=== PATIENT | female | born 1950 ===

== ENCOUNTER → 2023-09-04 | Day surgery (SDC) | payer OTHER | END | disposition home or self-care (01) | LOC: ADM 08-29 13:00 → AMB-ENDOS 06:40 | PROVIDERS: ATTEND Colon & Rectal Surgery | DX: C20 Malignant neoplasm of rectum (principal); K62.1 Rectal polyp; Z20.822 Contact with and (suspected) exposure to COVID-19 ==

== ENCOUNTER 2024-09-23 08:25 | Day surgery (SDC) | payer OTHER ==
[2024-09-23] MEDS ORDERED: MIDAZOLAM HCL 2 MG/2 ML VIAL IV ONE (12:45)
[2024-09-23] MEDS ORDERED: ONDANSETRON HCL 2 MG/ML VIAL IV ONE (12:45)
[2024-09-23] MEDS ORDERED: FLUMAZENIL 0.5 MG/5 ML ML IV ONE (12:45)
[2024-09-23] MEDS ORDERED: DIPHENHYDRAMINE HCL 50 MG/ML VIAL 1ML IV ONE (12:45)
[2024-09-23] MEDS ORDERED: fentaNYL CITRATE 50 MCG/ML AMPUL IV PUSH ONE (12:45)
== END 2024-09-23 14:00 | disposition home or self-care (01) ==
LOC: AMB-ENDOS 08:25
PROVIDERS: ATTEND Colon & Rectal Surgery
DX: C20 Malignant neoplasm of rectum (principal); D12.5 Benign neoplasm of sigmoid colon; D12.8 Benign neoplasm of rectum; Z93.3 Colostomy status; K57.32 Diverticulitis of large intestine without perforation or abscess without bleeding; Z12.11 Encounter for screening for malignant neoplasm of colon

== ENCOUNTER 2024-12-14 12:30 | Inpatient (IN) | payer OTHER ==
[~2024-12-14] VITALS: Ht 160 cm; Wt 51.3 kg
[2024-12-14 15:30] LABS: RH POSITIVE
[2024-12-15] MEDS ORDERED: FOLIC ACID0.8 M1 (10:52)
[2024-12-15] MEDS ORDERED: IRON325 MG PO (10:53)
[2024-12-15] MEDS ORDERED: COZAAR100 MG PO (10:53)
[2024-12-15] MEDS ORDERED: ATIVAN0.5 M1 PO (10:54)
[2024-12-15] MEDS ORDERED: HYDROCHLOROTHIA25 MG PO (10:54)
[2024-12-15] MEDS ORDERED: LIPITOR20 MG (10:55)
[2024-12-15] MEDS ORDERED: LEVOTHYROXINE25 MCG PO (10:56)
[2024-12-15] MEDS ORDERED: FLUOXETINE (10:56)
[2024-12-15 11:02] VITALS: BP 106/67
[2024-12-18] MEDS ORDERED: CEFTRIAXONE SODIUM 2,000 MG VIAL IV ONE (09:45)
[2024-12-18] MEDS ORDERED: BUPIVACAINE HCL/PF 0.25% 30ML VIAL InF ONE (09:45)
[2024-12-18] MEDS ORDERED: LIDOCAINE HCL 1%/EPINEPHRINE 20ML VIAL IJ ONE (09:45)
[2024-12-18] MEDS ORDERED: POVIDONE-IODINE 118 ML BOTT TOP ONE (10:30)
[2024-12-18] MEDS ORDERED: RINGERS SOLUTION,LACTATED 1,000 ML IV SCH (11:30)
[2024-12-18] MEDS ORDERED: OxyCODONE HCL 5 MG TABLET (ROXICODONE) PO PRN (11:30)
[2024-12-18] MEDS ORDERED: ONDANSETRON HCL 2 MG/ML VIAL IV PRN (11:30)
[2024-12-18] MEDS ORDERED: MORPHINE SULFATE 2 MG/ML CARTRIDGE IV PRN (11:30)
[2024-12-18] MEDS ORDERED: SUGAMMADEX SODIUM 200 MG/2 ML VIAL IV ONE (12:00)
[2024-12-18] MEDS ORDERED: ACETAMINOPHEN 500 MG GEL..CAP PO SCH (12:00)
[2024-12-18 12:27] LABS: BASO % 0.4 % (0.1-1.2); EOS # 0.03 (0.04-0.54); EOS % 0.6 % (0.7-7.0); HEMATOCRIT 34.2 % (34.1-44.9); HEMOGLOBIN 10.6 g/dL (11.2-15.7); LYMPH # 0.56 (1.18-3.74); MEAN CORPUSCULAR HEMOGLOBIN 25.5 pg (25.6-32.2); MONO # 0.26 (0.24-0.82); MONO % 5.6 % (4.7-12.5); NEUT % 81.2 % (34.0-71.1); RED BLOOD COUNT 4.16 M/uL (3.93-5.22); RED CELL DISTRIBUTION WIDTH 15.3 % (11.6-14.4)
[2024-12-18] MEDS ORDERED: MORPHINE SULFATE 4 MG/ML VIAL IV ONE (12:30)
[2024-12-18 12:39] LABS: PLATELET COUNT 41 K/uL (163-369)
[2024-12-18 13:49] LABS: ALBUMIN 3.7 gm/dL (3.4-5.0); CALCIUM 8.8 mg/dL (8.5-10.1); CREATININE SERUM 0.6 mg/dL (0.55-1.02); GFR 98.27; MAGNESIUM 1.7 mg/dL (1.8-2.4); PHOSPHOROUS 4.4 mg/dL (2.5-4.9); POTASSIUM 3.44 mEq/L (3.5-5.1)
[2024-12-18 14:50] VITALS: BP 127/75; O2SAT 96
[2024-12-18] MEDS ORDERED: PANTOPRAZOLE SODIUM 40 MG/VIAL VIAL IV SCH (14:55)
[2024-12-18 16:51] VITALS: BP 126/74; O2SAT 95
[2024-12-18] MEDS ORDERED: MAGNESIUM SULFATE IN WATER 2 GM/50 ML PIGGYBAG IV NR (17:00)
[2024-12-18] MEDS ORDERED: POTASSIUM CHLORIDE 20MEQ/100ML H2O PB IV NR (17:00)
[2024-12-18] MEDS ORDERED: POLYETHYLENE GLYCOL 3350 17 GM BLIST.PACK PO SCH (17:00)
[2024-12-18] MEDS ORDERED: SIMETHICONE 125 MG CAPSULE PO SCH (17:00)
[2024-12-18] MEDS ORDERED: LORazepam 0.5 MG TABLET PO SCH (21:00)
[2024-12-18] MEDS ORDERED: FAMOTIDINE/PF 20 MG/2 ML VIAL IV SCH (21:00)
[2024-12-19 02:02] VITALS: BP 95/60; O2SAT 98
[2024-12-19] MEDS ORDERED: LEVOTHYROXINE SODIUM 25 MCG TABLET PO SCH (06:00)
[2024-12-19 08:00] VITALS: BP 105/57; O2SAT 97
[2024-12-19 08:17] LABS: ALBUMIN 3.6 gm/dL (3.4-5.0); CALCIUM 8.8 mg/dL (8.5-10.1); CREATININE SERUM 0.64 mg/dL (0.55-1.02); GFR 91.22; MAGNESIUM 2.1 mg/dL (1.8-2.4); PHOSPHOROUS 2.7 mg/dL (2.5-4.9); POTASSIUM 3.8 mEq/L (3.5-5.1)
[2024-12-19 08:22] LABS: BASO % 0.1 % (0.1-1.2); HEMATOCRIT 35.7 % (34.1-44.9); HEMOGLOBIN 11.2 g/dL (11.2-15.7); MEAN CORPUSCULAR HEMOGLOBIN 25.2 pg (25.6-32.2); MONO # 0.44 (0.24-0.82); MONO % 5.5 % (4.7-12.5); NEUT # 7.19 (1.56-6.13); NEUT % 89.2 % (34.0-71.1); PLATELET COUNT 269 K/uL (163-369); RED BLOOD COUNT 4.45 M/uL (3.93-5.22); RED CELL DISTRIBUTION WIDTH 15.4 % (11.6-14.4)
[2024-12-19] MEDS ORDERED: MAGNESIUM CHLORIDE 70 MG TABLET.DR PO SCH (09:00)
[2024-12-19] MEDS ORDERED: LOSARTAN POTASSIUM 100 MG TABLET PO SCH (09:00)
[2024-12-19] MEDS ORDERED: ATORVASTATIN CALCIUM 20 MG TABLET PO SCH (09:00)
[2024-12-19] MEDS ORDERED: LACTOBACILLUS ACIDOPHILUS 1 CAP CAP PO SCH (09:00)
[2024-12-19] MEDS ORDERED: HYDROCHLOROTHIAZIDE 25 MG TABLET PO SCH (09:00)
[2024-12-19] MEDS ORDERED: ENOXAPARIN SODIUM 40 MG/0.4 ML SYRINGE SUBCUTANEO SCH (17:00)
[2024-12-19] MEDS ORDERED: POTASSIUM PHOS,M-BASIC-D-BASIC 15 MM in 0.9 % SODIUM CHLORIDE 250 ML IV NR (17:00)
[2024-12-19 17:12] VITALS: BP 151/74; O2SAT 96
[2024-12-20 01:49] VITALS: BP 100/68; O2SAT 98
[2024-12-20] MEDS ORDERED: HALOPERIDOL LACTATE 5 MG/ML AMPUL IM ONE (02:15)
[2024-12-20] MEDS ORDERED: DIPHENHYDRAMINE HCL 50 MG/ML VIAL 1ML IM ONE (02:30)
[2024-12-20] MEDS ORDERED: LORazepam 2 MG/ML VIAL IM ONE (02:30)
[2024-12-20 07:34] LABS: BASO % 0.1 % (0.1-1.2); EOS # 0.02 (0.04-0.54); EOS % 0.3 % (0.7-7.0); HEMATOCRIT 28.3 % (34.1-44.9); LYMPH # 0.42 (1.18-3.74); MEAN CORPUSCULAR HEMOGLOBIN 25.9 pg (25.6-32.2); MONO # 0.39 (0.24-0.82); MONO % 5.6 % (4.7-12.5); NEUT # 6.13 (1.56-6.13); NEUT % 87.4 % (34.0-71.1); PLATELET COUNT 211 K/uL (163-369); RED BLOOD COUNT 3.48 M/uL (3.93-5.22); RED CELL DISTRIBUTION WIDTH 15.3 % (11.6-14.4)
[2024-12-20 08:00] VITALS: BP 132/82; O2SAT 99
[2024-12-20 08:23] LABS: CALCIUM 8.7 mg/dL (8.5-10.1); CREATININE SERUM 0.48 mg/dL (0.55-1.02); GFR 127.13; MAGNESIUM 1.8 mg/dL (1.8-2.4); POTASSIUM 3.4 mEq/L (3.5-5.1)
[2024-12-20 09:16] LABS: PHOSPHOROUS 1.9 mg/dL (2.5-4.9)
[2024-12-20 16:00] VITALS: BP 135/76; O2SAT 99
[2024-12-20] MEDS ORDERED: POTASSIUM PHOS,M-BASIC-D-BASIC 15 MM in 0.9 % SODIUM CHLORIDE 250 ML IV NR (16:00)
[2024-12-20] MEDS ORDERED: NAPH,MB-DB/K PH,MBDB 1 PKT PACKET PO SCH (17:00)
[2024-12-20] MEDS ORDERED: IRON FUM,PS/FOLIC ACID/VITC/B3 1 CAP CAPSULE PO SCH (17:00)
[2024-12-20] MEDS ORDERED: Cyanocobalamin/Mecobalamin 1 TAB.SL SL SCH (17:00)
[2024-12-21 01:36] VITALS: BP 129/78; O2SAT 96
[2024-12-21] MEDS ORDERED: HALOPERIDOL LACTATE 5 MG/ML AMPUL IM ONE (03:45)
[2024-12-21] MEDS ORDERED: LORazepam 2 MG/ML VIAL IM ONE (03:45)
[2024-12-21] MEDS ORDERED: DIPHENHYDRAMINE HCL 50 MG/ML VIAL 1ML IM ONE (03:45)
[2024-12-21 06:46] LABS: BASO % 0.2 % (0.1-1.2); EOS # 0.08 (0.04-0.54); EOS % 1.7 % (0.7-7.0); LYMPH # 0.32 (1.18-3.74); MEAN CORPUSCULAR HEMOGLOBIN 25.2 pg (25.6-32.2); MONO # 0.28 (0.24-0.82); MONO % 6.1 % (4.7-12.5); NEUT # 3.88 (1.56-6.13); NEUT % 84.8 % (34.0-71.1); PLATELET COUNT 205 K/uL (163-369); RED BLOOD COUNT 3.33 M/uL (3.93-5.22); RED CELL DISTRIBUTION WIDTH 15.3 % (11.6-14.4)
[2024-12-21 07:04] LABS: HEMATOCRIT 26.6 % (34.1-44.9); HEMOGLOBIN 8.4 g/dL (11.2-15.7)
[2024-12-21 08:00] VITALS: BP 121/80; O2SAT 100
[2024-12-21] MEDS ORDERED: MAGNESIUM SULFATE IN WATER 2 GM/50 ML PIGGYBAG IV NR (09:00)
[2024-12-21 10:35] LABS: CALCIUM 8.7 mg/dL (8.5-10.1); CREATININE SERUM 0.42 mg/dL (0.55-1.02); GFR 148.31; PHOSPHOROUS 3.2 mg/dL (2.5-4.9); POTASSIUM 3.61 mEq/L (3.5-5.1)
[2024-12-21] MEDS ORDERED: SOD FERRIC GLUC COMPLX/SUCROSE 62.5 MG in 0.9 % SODIUM CHLORIDE 50 ML IV SCH (20:21)
[2024-12-21] MEDS ORDERED: SOD FERRIC GLUC COMPLX/SUCROSE 62.5 MG/5 ML AMPUL IV ONE (20:32)
[2024-12-22 00:06] VITALS: BP 119/71; O2SAT 96
[2024-12-22 08:00] VITALS: BP 125/74; O2SAT 95
[2024-12-22 08:41] LABS: ALBUMIN 2.6 gm/dL (3.4-5.0); CALCIUM 8.3 mg/dL (8.5-10.1); CREATININE SERUM 0.5 mg/dL (0.55-1.02); GFR 121.28; POTASSIUM 3.91 mEq/L (3.5-5.1)
[2024-12-22 09:25] LABS: RED BLOOD COUNT 3.28 M/uL (3.93-5.22)
[2024-12-22 09:26] LABS: BASO % 0.5 % (0.1-1.2); EOS % 2.6 % (0.7-7.0); HEMATOCRIT 26.9 % (34.1-44.9); LYMPH # 0.45 (1.18-3.74); LYMPH % 11.8 % (19.3-53.1); MEAN CORPUSCULAR HEMOGLOBIN 26.2 pg (25.6-32.2); MONO % 9.7 % (4.7-12.5); NEUT # 2.86 (1.56-6.13); NEUT % 75.1 % (34.0-71.1); PLATELET COUNT 237 K/uL (163-369); RED CELL DISTRIBUTION WIDTH 15.4 % (11.6-14.4)
[2024-12-22 09:27] LABS: HEMOGLOBIN 8.6 g/dL (11.2-15.7); MONO # 0.37 (0.24-0.82)
[2024-12-22] MEDS ORDERED: FUROsemide 20 MG/2 ML VIAL IV SCH (10:30)
[2024-12-22 16:00] VITALS: BP 134/81; O2SAT 95
[2024-12-22] MEDS ORDERED: POTASSIUM PHOS,M-BASIC-D-BASIC 9 MM in 0.9 % SODIUM CHLORIDE 250 ML IV NR (20:00)
[2024-12-22] MEDS ORDERED: PIPERACILLIN/TAZOBACTAM SODIUM 3.375 GM in DEXTROSE 5 % IN WATER 100 ML IV SCH (20:08)
[2024-12-22] MEDS ORDERED: NAPH,MB-DB/K PH,MBDB 1 PKT PACKET PO SCH (21:00)
[2024-12-23 01:02] VITALS: BP 128/83; O2SAT 97
[2024-12-23 08:00] VITALS: BP 151/75; O2SAT 97
[2024-12-23] MEDS ORDERED: PANTOPRAZOLE SODIUM 40 MG TABLET.DR PO SCH (09:00)
[2024-12-23 16:00] VITALS: BP 132/77; O2SAT 98
[2024-12-24 01:18] VITALS: BP 135/70; O2SAT 100
[2024-12-24 03:04] LABS: BASO % 0.5 % (0.1-1.2); EOS # 0.16 (0.04-0.54); EOS % 2.9 % (0.7-7.0); HEMATOCRIT 38.9 % (34.1-44.9); HEMOGLOBIN 12.6 g/dL (11.2-15.7); LYMPH # 0.49 (1.18-3.74); LYMPH % 8.8 % (19.3-53.1); MEAN CORPUSCULAR HEMOGLOBIN 25.9 pg (25.6-32.2); MONO # 0.49 (0.24-0.82); MONO % 8.8 % (4.7-12.5); NEUT # 4.34 (1.56-6.13); NEUT % 78.3 % (34.0-71.1); RED BLOOD COUNT 4.86 M/uL (3.93-5.22); RED CELL DISTRIBUTION WIDTH 15.6 % (11.6-14.4)
[2024-12-24 03:21] LABS: PLATELET COUNT 265 K/uL (163-369)
[2024-12-24 03:24] LABS: ALBUMIN 3.4 gm/dL (3.4-5.0); CALCIUM 8.8 mg/dL (8.5-10.1); CREATININE SERUM 0.64 mg/dL (0.55-1.02); GFR 91.22; MAGNESIUM 1.8 mg/dL (1.8-2.4); PHOSPHOROUS 3.7 mg/dL (2.5-4.9); POTASSIUM 3.85 mEq/L (3.5-5.1)
[2024-12-24 08:00] VITALS: BP 127/79; O2SAT 97
[2024-12-24 08:51] LABS: D DIMER 1.85 MG/L; PARTIAL THROMBOPLASTIN TIME 28.7 SECONDS (22.0-34.0); PROTHROMBIN TIME 10.9 SECONDS (9.0-11.5)
== END 2024-12-24 14:27 | disposition home or self-care (01) | DRG 330 ==
LOC: SURH 12-18 05:47 → O/R 12-18 05:47 → SURH 12-18 12:30
PROVIDERS: Internal Medicine Hematology & Oncology; ADMIT Colon & Rectal Surgery; ATTEND Colon & Rectal Surgery
PROC: 0WQF4ZZ Repair Abdominal Wall, Percutaneous Endoscopic Approach (ICD-10-PCS; 2024-12-18)
PROC: 0DBU4ZZ Excision of Omentum, Percutaneous Endoscopic Approach (ICD-10-PCS; 2024-12-18)
PROC: 0DJD8ZZ Inspection of Lower Intestinal Tract, Via Natural or Artificial Opening Endoscopic (ICD-10-PCS; 2024-12-18)
PROC: 0DBE4ZZ Excision of Large Intestine, Percutaneous Endoscopic Approach (ICD-10-PCS; principal; 2024-12-18 14:00)
PROC: 30233N1 Transfusion of Nonautologous Red Blood Cells into Peripheral Vein, Percutaneous Approach (ICD-10-PCS; 2024-12-22)
DX: Z43.3 Encounter for attention to colostomy (principal); C20 Malignant neoplasm of rectum; D62 Acute posthemorrhagic anemia; Z85.048 Personal history of other malignant neoplasm of rectum, rectosigmoid junction, and anus; K43.5 Parastomal hernia without obstruction or gangrene; D69.6 Thrombocytopenia, unspecified

== ENCOUNTER 2025-05-19 06:00 | Day surgery (SDC) | payer OTHER ==
[~2025-05-19 06:00] MED LIST: ATIVAN0.5 M1 PO; COZAAR100 MG PO; FLUOXETINE; FOLIC ACID0.8 M1; HYDROCHLOROTHIA25 MG PO; IRON325 MG PO; LEVOTHYROXINE25 MCG PO; LIPITOR20 MG
[2025-05-19] MEDS ORDERED: DIPHENHYDRAMINE HCL 50 MG/ML VIAL 1ML IV ONE (10:15)
[2025-05-19] MEDS ORDERED: fentaNYL CITRATE 50 MCG/ML AMPUL IV PUSH ONE (10:15)
[2025-05-19] MEDS ORDERED: MIDAZOLAM HCL 2 MG/2 ML VIAL IV ONE (10:15)
[2025-05-19] MEDS ORDERED: ONDANSETRON HCL 2 MG/ML VIAL IV ONE (10:15)
== END 2025-05-19 12:00 | disposition home or self-care (01) ==
LOC: AMB-ENDOS 06:00
PROVIDERS: ATTEND Colon & Rectal Surgery
DX: C20 Malignant neoplasm of rectum (principal)